=== PATIENT | female | born 1975 | race Caucasian/White ===

== ENCOUNTER → 2016-08-10 | Outpatient (CLI) | payer MEDICAID, OTHER ==
--- NOTE | 2016-08-10 16:01 | Diagnostic Imaging Report ---
PROCEDURE: US Thyroid. TECHNIQUE: Multiple real-time grayscale images were obtained of the thyroid in various projections. INDICATION: Intermittent dizziness and vomiting. COMPARISON: None. DISCUSSION: The thyroid gland is diffusely heterogenous. The thyroid is normal in size. The right thyroid measures 5.0 x 1.7 x 1.6 cm. Left thyroid measures 4.2 x 1.4 x 1.4 cm. A 1.1 x 0.6 x 0.8 cm nodule appears hypoechoic and heterogenous and is located along the posterior margin of the right thyroid gland. This could represent a small thyroid nodule or an adjacent parathyroid gland. A 6 mm hypoechoic nodule is noted within the left thyroid gland, too small to further characterize. IMPRESSION: 1. Heterogenous thyroid gland. 2. A 1.1 cm hypoechoic heterogenous solid nodule along the posterior margin of the right thyroid gland could represent a small thyroid nodule or an adjacent parathyroid gland. Recommend six-month sonographic followup. Dictated by: Dictated on workstation # [id number]
== END ==
LOC: RAD 14:32
PROVIDERS: ATTEND Nurse Practitioner Family
DX: E04.1 Nontoxic single thyroid nodule (principal)
CPT/HCPCS: 76536

== ENCOUNTER → 2017-02-07 | Outpatient (CLI) | payer MEDICAID, OTHER ==
--- NOTE | 2017-02-07 18:07 | Diagnostic Imaging Report ---
PROCEDURE: US Thyroid. TECHNIQUE Multiple real-time grayscale images were obtained of the thyroid in various projections. INDICATION: Followup right thyroid nodule. Thyroid fullness. COMPARISON: 08/10/2016. FINDINGS: The right lobe measures 4.8 cm x 1.1 cm x 1.3 cm and the left lobe measures 5 cm x 1.3 cm x 1.2 cm. The thyroid gland is diffusely heterogeneous. No focal nodules seen on the left. On the right, there is a persistent 9 mm hypo to isoechoic nodule along the posterior aspect of the inferior right thyroid lobe which today appears to be part of the thyroid gland. An adjacent parathyroid nodule would not be entirely excluded but is felt to be less likely. Regardless, it is unchanged from the prior ultrasound. No new nodules are seen. IMPRESSION: 1. 9 mm hypo to isoechoic nodule along the posterior aspect of the inferior right thyroid gland is unchanged from the prior study. This is likely intrathyroid, although an adjacent parathyroid nodule would be difficult to entirely exclude. 2. No significant new abnormality or interval change is seen when compared to the prior study. The thyroid gland remains diffusely heterogeneous. Dictated by: Dictated on workstation # [id number]
== END ==
LOC: RAD 12:03
PROVIDERS: ATTEND Nurse Practitioner Family
DX: E04.1 Nontoxic single thyroid nodule (principal)
CPT/HCPCS: 76536

== ENCOUNTER → 2018-05-01 | Outpatient (CLI) | payer MEDICAID ==
--- NOTE | 2018-05-01 11:12 | Diagnostic Imaging Report ---
INDICATION: Routine screening. No prior mammograms are available for comparison. This is a baseline study. 2-D and 3-D bilateral screening mammography was performed with a Computer Aided Detection (CAD) system. FINDINGS: Scattered fibronodular densities are identified bilaterally. No mass or malignant appearing microcalcifications are seen. The axillae are unremarkable. IMPRESSION: No mammographic features suspicious for malignancy are identified. ACR BI-RADS Category 1: Negative. Result letter will be mailed to the patient. Note: At least 10% of breast cancer is not imaged by mammography. Dictated by: Dictated on workstation # [id number]
== END ==
LOC: RAD 09:51
PROVIDERS: ATTEND Nurse Practitioner Primary Care
DX: Z12.31 Encounter for screening mammogram for malignant neoplasm of breast (principal); Z11.3 Encounter for screening for infections with a predominantly sexual mode of transmission
CPT/HCPCS: 77067